=== PATIENT | male | born 1990 | race Asian ===

== ENCOUNTER 2022-03-30 17:49 | Emergency (ER) | payer OTHER, SELFPAY ==
[2022-03-30 18:03] VITALS: BP 124/79; PULSE 82; RESP 16; TEMP 36.4; O2SAT 98; BMI 34.5
--- NOTE | 2022-03-30 20:28 | ED_ITS ---
HPI - Skin/Abscess/Foreign Bdy General Chief complaint: Skin/Abscess/Foreign Body Stated complaint: thinks he has a cyst on his butt Time Seen by Provider: 03/30/22 18:04 Source: patient Mode of arrival: Ambulatory Limitations: no limitations History of Present Illness HPI narrative: 32-year-old otherwise healthy male who is here for evaluation of what he initially stated was a cyst on his left buttocks. He has had an issue in this area in the past and has required what he states was surgery to drain it. Turns out what he is talking about most likely was a perianal abscess requiring an incision and drainage. He started noticing tenderness in the area couple days ago. No problems with bowel movements. No fevers. He was concerned that maybe the cyst was reoccurring so he decided to come in early to have it evaluated. Related Data Previous Rx's Medication Instructions Recorded doxycycline hyclate 100 mg capsule 100 mg PO BID 7 days #14 caps 03/30/22 Allergies Allergy/AdvReac Type Severity Reaction Status Date / Time No Known Drug Allergies Allergy Verified 03/30/22 18:03 Review of Systems Constitutional Constitutional: Reports system reviewed and no additional complaints, except as documented Musculoskeletal Musculoskeletal: Reports system reviewed and no additional complaints, except as documented Integumentary/Breasts Skin/Breast: Reports system reviewed and no additional complaints, except as documented Neurologic Neurologic: Reports system reviewed and no additional complaints, except as documented Hematologic/Lymphatic On Anticoagulants: No Patient History Social History Smoking Status: Never smoker Smoking Status: Never smoker alcohol intake frequency: holidays/special occasions only Substance Use Type: does not use Exam Initial Vital Signs Initial Vital Signs: Vital Signs Temperature 97.6 F 03/30/22 18:03 Pulse Rate 82 03/30/22 18:03 Respiratory Rate 16 03/30/22 18:03 Blood Pressure 124/79 03/30/22 18:03 Pulse Oximetry 98 03/30/22 18:03 Oxygen Delivery Method 03/30/22 18:03 GI Rectal Exam: visual inspection normal and No hemorrhoids Skin Other: Some mild erythema along the left buttocks no vesicles. No pustules. There is induration under this area as well. Procedures Abscess I/D I&D #1: Site: other (Perianal) Side (if applicable): left Local Anesthetic: lidocaine 1% Amount of anesthesia used (mL): 5 Technique: incised with #11 blade Irrigation: No Packing used?: none Course Orders Ordered: ED Orders 03/30/22 20:28 CT pelvis w con Stat 03/30/22 20:45 Basic Metabolic Panel Stat Complete Blood Count AUTO DIFF Stat Discontinued Medications Doxycycline Hyclate (Doxycycline Hyclate 100 Mg Tablet) 100 mg PO NOW ONE Stop: 03/30/22 23:00 Last Admin: 03/30/22 23:20 Dose: 100 mg Documented By: YUE Tramadol HCl (Tramadol 50 Mg Prepack) 1 bottle MISC SEEINSTR ONE Stop: 03/30/22 23:01 Last Admin: 03/30/22 23:20 Dose: 1 bottle Documented By: YUE Vital Signs Vital signs: Vital Signs - 8 hr 03/30/22 18:03 03/30/22 23:31 Temperature 97.6 F 97.4 F L Pulse Rate 82 66 Respiratory Rate 16 14 Blood Pressure 124/79 118/66 Pulse Oximetry 98 99 Oxygen Delivery Method Room Air Room Air MDM - Skin/Abscess/Foreign Bdy Differential Diagnosis Differential diagnosis: Likely abscess of skin or subcutaneous tissue and other (Perianal abscess, perirectal abscess) Lab Data Attestation: I reviewed the patient's lab results. 03/30/22 20:45 03/30/22 20:45 Labs: Lab Results 03/30/22 03/30/22 Range/Units 20:45 20:45 WBC 13.0 H (4.5-11.0) X10^3/uL RBC 5.08 (4.5-5.9) X10^6/uL Hgb 14.4 (13.5-17.5) g/dL Hct 43.0 (41-53) % MCV 84.6 (80-100) fL MCH 28.4 (26-34) PG MCHC 33.6 (30-36) % RDW 13.9 (11.6-14.8) % Plt Count 236 (150-400) X10^3/uL Neut % (Auto) 70.8 (50-75) % Lymph % (Auto) 19.3 L (25-40) % Cook % (Auto) 6.3 (3-14) % Eos % (Auto) 1.4 L (2-4) % Baso % (Auto) 2.2 H (0-2) % Neut # (Auto) 9200 H (8197-3640) /uL Lymph # (Auto) 2500 (1305-4970) /uL Cook # (Auto) 800 (0-900) /uL Eos # (Auto) 200 (0-450) /uL Baso # (Auto) 300 H (0-100) /uL Sodium 143 (137-145) mmol/L Potassium 4.1 (3.4-5.1) mmol/L Chloride 104 (98-107) mmol/L Carbon Dioxide 27 (22-32) mmol/L BUN 12 (9-20) mg/dL Creatinine 0.65 L (0.66-1.25) mg/dL Estimated GFR > 60 (>60) mL/min BUN/Creatinine Ratio 18.5 (6-22) Glucose 84 (70-100) mg/dL Calcium 9.8 (8.4-10.2) mg/dL Imaging Data CT pelvis: Radiologist's Impression: [place] [address] CT Scan Report Signed Patient: Aurelia Shelton MR#: [id number] : 1990 Acct:[id number] Age/Sex: 32 / M Date of Service: 03/30/22 Loc: ED Accession Number: [id number] ?? Procedure: CT pelvis w con Ordering Provider: Carlo Mai D.O. PROCEDURE:? CT PELVIS W CON ? INDICATIONS:? L side perirectal/perianal abscess ? TECHNIQUE:? After the administration of intravenous contrast, 5 mm thick sections acquired from the iliac crests to the symphysis.? 5 mm coronal and sagittal reformats were ac quired.? For radiation dose reduction, the following was used:? automated exposure control, adjustment of mA and/or kV according to patient size.? ? COMPARISON:? None. ? FINDINGS:? Image quality:? Excellent.? ? Peritoneum and bowel:? Bowel loops demonstrate normal wall thickness and caliber.? No free fluid or air.? ? There is a small left perianal collection measuring approximately 2.8 x 1.4 cm in transverse dimension by 2.8 cm in craniocaudal dimension consistent with a perianal abscess.? There is mild adjacent fat stranding within the ischiorectal fat.? The abscess collection extends medially to the gluteal fold.? ? Genitourinary:? Bladder wall thickness is normal.? ? Nodes and vessels:? No iliac, pelvic, or inguinal adenopathy by size criteria.? Iliac vessels demonstrate normal size and enhancement.? ? Bones:? No suspicious bony lesions.? ? Miscellaneous:? No inguinal hernias.? ? IMPRESSION:? ? 1. Small left perianal abscess as described.? Further evaluation may be obtained with a pelvic MRI if clinically indicated.? ? Dictated by: Aníbal Vogt M.D. on 03/30/2022 at 22:06 ? ? Approved by: Aníbal Vogt M.D. on 03/30/2022 at 22:09? [facility] Narrative Medical decision making narrative: CT scan shows perianal abscess. This does correspond to what was seen on the exam. An incision and drainage was performed with a small amount of purulent material. There is some surrounding erythema. He was given a dose of antibiotics here in the emergency department will send home with a prescription for the remainder of the course. He was given care instructions and return precautions. He expressed understanding and agreement. Discharge Plan Departure Patient Disposition: Home Clinical Impression: Perianal abscess Instructions: DI for Skin Abscess Activity Restrictions/Additional Instructions: I do recommend that you take the antibiotics as directed. Expect some drainage from the area. And you can change the bandage as needed. If your symptoms are not improving especially if they are worsening please return to the emergency department. [facility] your [facility]. Prescriptions: New doxycycline hyclate 100 mg capsule 100 mg PO BID 7 Days Qty: 14 0RF Stand Alone Forms: Patient Portal/API, Work Release Note
--- NOTE | 2022-03-30 20:28 | DI.CT.S_ITS ---
PROCEDURE: CT PELVIS W CON INDICATIONS: L side perirectal/perianal abscess TECHNIQUE: After the administration of intravenous contrast, 5 mm thick sections acquired from the iliac crests to the symphysis. 5 mm coronal and sagittal reformats were acquired. For radiation dose reduction, the following was used: automated exposure control, adjustment of mA and/or kV according to patient size. COMPARISON: None. FINDINGS: Image quality: Excellent. Peritoneum and bowel: Bowel loops demonstrate normal wall thickness and caliber. No free fluid or air. There is a small left perianal collection measuring approximately 2.8 x 1.4 cm in transverse dimension by 2.8 cm in craniocaudal dimension consistent with a perianal abscess. There is mild adjacent fat stranding within the ischiorectal fat. The abscess collection extends medially to the gluteal fold. Genitourinary: Bladder wall thickness is normal. Nodes and vessels: No iliac, pelvic, or inguinal adenopathy by size criteria. Iliac vessels demonstrate normal size and enhancement. Bones: No suspicious bony lesions. Miscellaneous: No inguinal hernias. IMPRESSION: 1. Small left perianal abscess as described. Further evaluation may be obtained with a pelvic MRI if clinically indicated. Dictated by: Aníbal Vogt M.D. on 03/30/2022 at 22:06 Approved by: Aníbal Vogt M.D. on 03/30/2022 at 22:09
[2022-03-30 21:01] LABS: Add Manual Diff / Slide Review NO; Basophils Absolute Auto 300 /uL (0-100); Basophils Percent Auto 2.2 % (0-2); Eosinophils Absolute Auto 200 /uL (0-450); Eosinophils Percent Auto 1.4 % (2-4); Hemoglobin 14.4 g/dL (13.5-17.5); Lymphocytes Absolute Auto 2500 /uL (1100-4500); Lymphocytes Percent Auto 19.3 % (25-40); Mean Corpuscular HGB Conc 33.6 % (30-36); Mean Corpuscular Hemoglobin 28.4 PG (26-34); Mean Corpuscular Volume 84.6 fL (80-100); Monocytes Absolute Auto 800 /uL (0-900); Monocytes Percent Auto 6.3 % (3-14); Neutrophils Absolute Auto 9200 /uL (1500-7000); Neutrophils Percent Auto 70.8 % (50-75); Platelet Count 236 X10^3/uL (150-400); Red Blood Cell Count 5.08 X10^6/uL (4.5-5.9); Red Cell Distribution Width 13.9 % (11.6-14.8)
[2022-03-30 21:07] LABS: BUN Creatinine Ratio 18.5 (6-22); Blood Urea Nitrogen 12 mg/dL (9-20); Calcium 9.8 mg/dL (8.4-10.2); Carbon Dioxide 27 mmol/L (22-32); Chloride 104 mmol/L (98-107); Estimated Glomerular Filt Rate > 60 mL/min (>60); Glucose 84 mg/dL (70-100); HEMOLYSIS 28 (0-50); Potassium 4.1 mmol/L (3.4-5.1); Sodium 143 mmol/L (137-145)
[2022-03-30] MEDS: TRAMADOL 50 MG PREPACK 1 BOTTLE MISC (23:20)
[2022-03-30] MEDS: DOXYCYCLINE HYCLATE 100 MG TABLET PO (23:20)
[2022-03-30 23:31] VITALS: BP 118/66; PULSE 66; RESP 14; TEMP 36.3; O2SAT 99
== END 2022-03-30 23:20 | disposition home or self-care (01) ==
PROVIDERS: Emergency Provider Emergency Medicine
DX: K61.0 Anal abscess (principal)
CPT/HCPCS: 10060; 36415; 72193; 80048; 85025; 99283; 99284; Q9967

== ENCOUNTER 2023-04-08 02:00 | Emergency (ER) | payer OTHER, SELFPAY ==
[2023-04-08] VITALS (14 sets, daily range): BP systolic 104–140; BP diastolic 69–91; PULSE 66–79; RESP 15–24; TEMP 36.4; O2SAT 97–100; BMI 34.7
--- NOTE | 2023-04-08 02:38 | DI.RAD.S_ITS ---
PROCEDURE: XR CHEST 1V INDICATIONS: chest pain TECHNIQUE: One view of the chest was acquired. COMPARISON: None. FINDINGS: Surgical changes and devices: None. Lungs and pleura: Lungs are clear. No pleural effusions or pneumothorax. Mediastinum: Mediastinal contours appear normal. Heart size is normal. Bones and chest wall: No suspicious bony lesions. Overlying soft tissues appear unremarkable. IMPRESSION: No acute cardiopulmonary abnormality is seen. Agree with preliminary report. Dictated by: Saran Hernandez M.D. on 04/08/2023 at 8:34 Approved by: Saran Hernandez M.D. on 04/08/2023 at 8:34
--- NOTE | 2023-04-08 02:40 | ED.CHESTPAIN ---
HPI - Chest Pain General Chief Complaint: Chest Pain Stated Complaint: chest pain Time Seen by Provider: 04/08/23 02:40 Source: patient Mode of arrival: Ambulatory Limitations: no limitations History of Present Illness HPI narrative: This is a 33-year-old diabetic who is here with lower chest pain for approximately 5 hours. It is nonexertional. He describes as pressure-like it is bilateral. He has had a cough which is nonproductive he has not had any fevers. No nausea or vomiting. Does not feel short of breath. Had not noticed any leg swelling or leg pain, did just returned from the [facility] about 3 days ago. Cardiac risk factors includes diabetes and elevated cholesterol. He has not a smoker no family history of coronary disease. He is still having some chest pain. He admitted to using alcohol fairly heavily during a recent trip to the [facility]. No history of hepatitis. Related Data Allergies Allergy/AdvReac Type Severity Reaction Status Date / Time No Known Drug Allergies Allergy Verified 03/30/22 18:03 Patient History Social History Smoking Status: Former smoker Smoking Status: Former smoker alcohol intake frequency: holidays/special occasions only Substance Use Type: does not use Exam Narrative Exam Narrative: Alert, no acute distress HEENT: Normocephalic, atraumaitic moist mucus membranes Neck: Supple no midline tenderness Lungs: Clear to ascultaion, no respiratory distress Heart: Regular rhythm and rate no murmur Abdomen: Normal bowel sounds, soft, no palpable hepatomegaly mild right upper quadrant tenderness without guarding or rebound Extremeties: Full range of motion no deformity Neuro: Alert and oriented, normal speech moves x4 Initial Vital Signs Initial Vital Signs: Vital Signs Pulse Rate 73 04/08/23 02:09 Respiratory Rate 22 04/08/23 02:09 Pulse Oximetry 100 04/08/23 02:09 Course Orders Ordered: ED Orders 04/08/23 02:33 Complete Blood Count AUTO DIFF Stat D Dimer Stat PTT Partial Thromboplastin Negrito Stat Prothrombin Time INR Stat Respiratory Panel (Film Array) Stat 04/08/23 02:38 XR chest 1V Stat EKG-12 Lead Stat 04/08/23 03:39 Comprehensive Metabolic Panel Stat Lipase Stat Magnesium Stat Troponin & CK Cardiac Panel Stat 04/08/23 04:15 US abdomen limited Stat 04/08/23 05:43 Trop I [Troponin I] Stat 04/08/23 06:53 Hepatitis Acute Panel Stat Vital Signs Vital signs: Vital Signs - 8 hr 04/08/23 02:09 04/08/23 02:10 04/08/23 02:10 Temperature Pulse Rate 73 74 Respiratory Rate 22 18 Blood Pressure 122/84 Pulse Oximetry 100 98 Oxygen Delivery Method Room Air 04/08/23 02:13 04/08/23 02:30 04/08/23 02:30 Temperature 97.6 F Pulse Rate 74 66 Respiratory Rate 18 21 Blood Pressure 122/84 140/91 H Pulse Oximetry 97 97 Oxygen Delivery Method Room Air Room Air 04/08/23 03:00 04/08/23 03:00 04/08/23 03:06 Temperature Pulse Rate 70 77 Respiratory Rate 19 24 Blood Pressure 122/84 Pulse Oximetry 97 97 Oxygen Delivery Method Room Air 04/08/23 03:06 04/08/23 03:30 04/08/23 03:30 Temperature Pulse Rate 76 Respiratory Rate 21 Blood Pressure 127/87 117/74 Pulse Oximetry 97 Oxygen Delivery Method Room Air 04/08/23 04:00 04/08/23 04:00 04/08/23 04:30 Temperature Pulse Rate 73 69 Respiratory Rate 16 16 Blood Pressure 104/70 Pulse Oximetry 97 98 Oxygen Delivery Method Room Air Room Air 04/08/23 04:30 04/08/23 05:00 04/08/23 05:00 Temperature Pulse Rate 79 Respiratory Rate 18 Blood Pressure 116/76 122/74 Pulse Oximetry 98 Oxygen Delivery Method Room Air 04/08/23 05:30 04/08/23 05:30 04/08/23 06:00 Temperature Pulse Rate 72 69 Respiratory Rate 16 15 Blood Pressure 120/78 Pulse Oximetry 97 99 Oxygen Delivery Method Room Air Room Air 04/08/23 06:00 04/08/23 06:30 04/08/23 06:30 Temperature Pulse Rate 72 Respiratory Rate 15 Blood Pressure 133/69 117/76 Pulse Oximetry 97 Oxygen Delivery Method Room Air MDM - Chest Pain Lab Data Lab results narrative: Respiratory PCR is negative, CBC remarkable for a leukocytosis which is mild at 13.8. Chemistries has a mild transaminitis with normal bilirubin and alkaline phosphatase. Troponins are normal x2, D-dimer is normal 04/08/23 02:33 02/05/24 03:39 Labs: Lab Results 04/08/23 04/08/23 04/08/23 Range/Units 02:33 03:39 05:43 WBC 13.8 H (4.5-11.0) X10^3/uL RBC 4.99 (4.5-5.9) X10^6/uL Hgb 14.2 (13.5-17.5) g/dL Hct 42.3 (41-53) % MCV 84.8 (80-100) fL MCH 28.4 (26-34) PG MCHC 33.5 (30-36) % RDW 14.0 (11.6-14.8) % Plt Count 300 (150-400) X10^3/uL Neut % (Auto) 69.4 (50-75) % Lymph % (Auto) 22.7 L (25-40) % Mcpherson % (Auto) 5.9 (3-14) % Eos % (Auto) 1.1 L (2-4) % Baso % (Auto) 0.9 (0-2) % Neut # (Auto) 9600 H (4549-2913) /uL Lymph # (Auto) 3100 (2200-3185) /uL Mcpherson # (Auto) 800 (0-900) /uL Eos # (Auto) 100 (0-450) /uL Baso # (Auto) 100 (0-100) /uL PT 11.6 (9.4-12.5) SECONDS INR 1.0 (0.9-1.3) APTT 40 H (25.1-36.5) SECONDS D-Dimer 279 (<500) ng/ml Sodium 137 (137-145) mmol/L Potassium 3.6 (3.4-5.1) mmol/L Chloride 104 (98-107) mmol/L Carbon Dioxide 24 (22-32) mmol/L BUN 16 (9-20) mg/dL Creatinine 0.68 (0.66-1.25) mg/dL Estimated GFR > 60 (>60) mL/min BUN/Creatinine Ratio 23.5 H (6-22) Glucose 121 H (70-100) mg/dL Calcium 9.6 (8.4-10.2) mg/dL Magnesium 1.9 (1.6-2.3) mg/dL Total Bilirubin 0.7 (0.2-1.3) mg/dL AST 177 H (17-59) IU/L ALT 396 H (<50) IU/L Alkaline Phosphatase 103 (38-126) U/L Total Creatine Kinase 148 (55-170) U/L Troponin I < 0.012 < 0.012 (0.01-0.034) ng/mL Total Protein 8.5 H (6.3-8.2) g/dL Albumin 4.5 (3.5-5.0) g/dL Globulin 4.0 (1.7-4.1) g/dL Albumin/Globulin Ratio 1.1 (1.0-2.8) Lipase 69 (23-300) U/L Chlamy pneumoniae PCR Not detected (Not Detect) Adenovirus (PCR) Not detected (Not Detect) B.parapertussis DNA PCR Not detected (Not Detecte) Coronavirus OC43 (PCR) Not detected (Not Detect) Coronavirus HKU1 (PCR) Not detected (Not Detect) Coronavirus 229E (PCR) Not detected (Not Detect) SARS-CoV-2 (PCR) Not detected (Not Detecte) Coronavirus NL63 (PCR) Not detected (Not Detect) Human Metapneumovir PCR Not detected (Not Detect) Influenza Type A (PCR) Not detected (Not Detect) Influenza Type B (PCR) Not detected (Not Detect) M. pneumoniae (PCR) Not detected (Not Detect) Parainfluenza 1 (PCR) Not detected (Not Detect) Parainfluenza 2 (PCR) Not detected (Not Detect) Parainfluenza 3 (PCR) Not detected (Not Detect) Parainfluenza 4 (PCR) Not detected (Not Detect) RSV (PCR) Not detected (Not Detect) Entero/Rhino (PCR) Not detected (Not Detect) Imaging Data Chest x-ray: My Impression: Independent review of chest x-ray, no acute findings US - abdomen: Radiologist's Impression: ?Hepatomegaly and hepatic steatosis no sonographic findings of acute cholecystitis? ECG Data Interpretation: EKG shows normal sinus rhythm at 71 poor R-wave progression, no acute ST segment changes. [facility] Narrative Medical decision making narrative: 33-year-old male with bilateral chest pain and right upper quadrant tenderness. Has cardiac risk factors to include diabetes and hypertension but troponins are normal x2. Recent long pain trip, D-dimer is normal. Recently traveled to the [facility] where he consumed quite a bit of alcohol, transaminitis may be related to this. I sent an acute hepatitis panel for primary care follow up. Patient was feeling better by the time of discharge. Discharge Plan Departure Patient Disposition: Home Clinical Impression: Transaminitis Chest pain Qualifiers: Chest pain type: unspecified Qualified Code(s): R07.9 - Chest pain, unspecified Instructions: DI for Chest Pain Activity Restrictions/Additional Instructions: Workup today is reassuring. No serious cause for chest pain is identified. We do also note a moderate elevation in liver enzymes which may be related to recent alcohol use. I did send lab work for acute hepatitis you will be notified if any of that is concerning. I recommend that you stay away from alcohol. If you are having increasing chest pain shortness of breath or fevers recheck in the emergency department. Follow up soon with your primary care provider. Continue previous home medications. Referrals: ProviderSteven [Primary Care Provider] - Stand Alone Forms: Patient Portal/API
[2023-04-08 02:53] LABS: Prothrombin Time 11.6 SECONDS (9.4-12.5)
[2023-04-08 02:55] LABS: Add Manual Diff / Slide Review NO; Basophils Absolute Auto 100 /uL (0-100); Basophils Percent Auto 0.9 % (0-2); Eosinophils Absolute Auto 100 /uL (0-450); Eosinophils Percent Auto 1.1 % (2-4); Hematocrit 42.3 % (41-53); Hemoglobin 14.2 g/dL (13.5-17.5); Lymphocytes Absolute Auto 3100 /uL (1100-4500); Lymphocytes Percent Auto 22.7 % (25-40); Mean Corpuscular HGB Conc 33.5 % (30-36); Mean Corpuscular Hemoglobin 28.4 PG (26-34); Mean Corpuscular Volume 84.8 fL (80-100); Monocytes Absolute Auto 800 /uL (0-900); Monocytes Percent Auto 5.9 % (3-14); Neutrophils Absolute Auto 9600 /uL (1500-7000); Neutrophils Percent Auto 69.4 % (50-75); Platelet Count 300 X10^3/uL (150-400); Red Blood Cell Count 4.99 X10^6/uL (4.5-5.9); White Blood Cell Count 13.8 X10^3/uL (4.5-11.0)
[2023-04-08 02:56] LABS: PTT Partial Thromboplastin Tim 40 SECONDS (25.1-36.5)
[2023-04-08 03:59] LABS: Alanine Aminotransferase 396 IU/L (<50); Albumin 4.5 g/dL (3.5-5.0); Albumin Globulin Ratio 1.1 (1.0-2.8); Alkaline Phosphatase 103 U/L (38-126); Aspartate Aminotransferase 177 IU/L (17-59); BUN Creatinine Ratio 23.5 (6-22); Bilirubin Total 0.7 mg/dL (0.2-1.3); Blood Urea Nitrogen 16 mg/dL (9-20); Calcium 9.6 mg/dL (8.4-10.2); Carbon Dioxide 24 mmol/L (22-32); Chloride 104 mmol/L (98-107); Creatine Kinase 148 U/L (55-170); Estimated Glomerular Filt Rate > 60 mL/min (>60); Glucose 121 mg/dL (70-100); HEMOLYSIS 18 (0-50); Lipase 69 U/L (23-300); Magnesium 1.9 mg/dL (1.6-2.3); Potassium 3.6 mmol/L (3.4-5.1); Sodium 137 mmol/L (137-145); Total Protein 8.5 g/dL (6.3-8.2)
--- NOTE | 2023-04-08 04:15 | DI.US.S_ITS ---
PROCEDURE: US ABDOMEN LIMITED INDICATIONS: TRANSAMINITIS AND UPPER ABDOMINAL PAIN TECHNIQUE: Real-time scanning was performed of the abdominal and retroperitoneal organs, with image documentation. COMPARISON: None. FINDINGS: Liver: Liver is mildly enlarged at 17.1 centimeters. The liver is increased in echogenicity. Gallbladder: No gallstones. No wall thickening. No pericholecystic edema. Negative sonographic Gutierrez's sign. Biliary ducts: Intrahepatic bile ducts are non-dilated. Extrahepatic bile duct caliber measures 6 mm. Normal is 6-7 mm or less in diameter, or 10 mm or less post-cholecystectomy. Pancreas: Visualized portions of the pancreas are sonographically normal. The pancreatic tail is not well seen. Miscellaneous: No free abdominal fluid. IMPRESSION: 1. Cholelithiasis without evidence of acute cholecystitis. 2. Mild hepatomegaly and hepatic steatosis. Findings are concordant with preliminary interpretation provided by [facility]. Dictated by: Jaden Viera M.D. on 04/08/2023 at 8:14 Approved by: Jaden Viera M.D. on 04/08/2023 at 8:16
[2023-04-08 04:16] LABS: Adenovirus Not Detected (Not Detect); B. parapertussis Not Detected (Not Detecte); Bordetella pertussis Not Detected (Not Detect); Chlamydophila pneumoniae Not Detected (Not Detect); Coronavirus 229E Not Detected (Not Detect); Coronavirus HKU1 Not Detected (Not Detect); Coronavirus NL 63 Not Detected (Not Detect); Coronavirus OC43 Not Detected (Not Detect); Human Metapneumovirus Not Detected (Not Detect); Human Rhinovirus/Enterovirus Not Detected (Not Detect); Influenza A Not Detected (Not Detect); Influenza B Not Detected (Not Detect); Mycoplasma pneumoniae Not Detected (Not Detect); Parainfluenza Virus 1 Not Detected (Not Detect); Parainfluenza Virus 2 Not Detected (Not Detect); Parainfluenza Virus 3 Not Detected (Not Detect); Parainfluenza Virus 4 Not Detected (Not Detect); Respiratory Syncytial Virus Not Detected (Not Detect); SARS- CoV-2 Not Detected (Not Detecte)
[2023-04-08 04:17] LABS: Troponin I < 0.012 ng/mL (0.01-0.034)
[2023-04-08 04:32] LABS: D Dimer 279 ng/ml (<500)
[2023-04-08 06:08] LABS: Troponin I < 0.012 ng/mL (0.01-0.034)
[2023-04-09 12:48] LABS: HBsAg Screen Negative (Negative); Hepatitis A Antibody IgM Negative (Negative); Hepatitis B Core Antibody IgM Negative (Negative); Hepatitis C Antibody Non Reactive (Non Reactive)
== END 2023-04-08 07:12 | disposition home or self-care (01) ==
PROVIDERS: Emergency Provider Emergency Medicine
DX: R07.9 Chest pain, unspecified (principal); R74.01 Elevation of levels of liver transaminase levels
CPT/HCPCS: 36415; 71045; 76705; 80053; 80074; 82550; 83690; 83735; 84484; 85025; 85379; 85610; 85730; 87633; 93005; 93010; 99284